=== PATIENT | male | born 1985 | race Caucasian/White ===

== ENCOUNTER 2023-02-22 16:39 | Emergency (ER) | payer MEDICAID ==
[~2023-02-22] VITALS: Ht 188 cm; Wt 99.8 kg
[2023-02-22] MEDS ORDERED: LIDOCAINE HCL 1% 20 ML VIAL ONE (16:56)
[2023-02-22] MEDS ORDERED: LIDOCAINE HCL 1% 20 ML VIAL TP ONE (17:00)
[2023-02-22] MEDS ORDERED: IBUP-1957 PO (17:48)
--- NOTE | 2023-02-22 18:07 | NUR ---
Patient discharged to home in stable condition. Written and verbal after care instructions given. Patient verbalizes understanding of instructions. Stressed follow up or return to ER for worsening s/s.
== END 2023-02-22 18:07 | disposition home or self-care (01) ==
LOC: ER 16:42
DX: S61.214A Laceration without foreign body of right ring finger without damage to nail, initial encounter (principal); S00.03XA Contusion of scalp, initial encounter; Z79.1 Long term (current) use of non-steroidal anti-inflammatories (NSAID); V49.9XXA Car occupant (driver) (passenger) injured in unspecified traffic accident, initial encounter; Y93.89 Activity, other specified; Y92.89 Other specified places as the place of occurrence of the external cause; Y99.8 Other external cause status
CPT/HCPCS: 99284; 70450; 71045; 72110; 73140; 72125; 12002; J3490; A4663

== ENCOUNTER 2023-02-26 12:15 | Emergency (ER) | payer MEDICAID ==
[~2023-02-26] VITALS: Ht 188 cm; Wt 99.8 kg
[~2023-02-26 12:15] MED LIST: IBUP-1957 PO
== END 2023-02-26 12:40 | disposition home or self-care (01) ==
LOC: ER 12:15
DX: S61.215D Laceration without foreign body of left ring finger without damage to nail, subsequent encounter (principal); Z79.1 Long term (current) use of non-steroidal anti-inflammatories (NSAID); V89.2XXD Person injured in unspecified motor-vehicle accident, traffic, subsequent encounter
CPT/HCPCS: A4663

== ENCOUNTER 2023-03-04 12:10 | Emergency (ER) | payer MEDICAID ==
[~2023-03-04] VITALS: Ht 188 cm; Wt 99.8 kg
--- NOTE | 2023-03-04 12:31 | NUR ---
38 years old male walk in to er for wound recheck and suture removal right 4th finger. no redness, no drainage no foul odor.
--- NOTE | 2023-03-04 12:41 | NUR ---
suture removed tolerated well skin intact, d/c home with instructions after care reviewed understood.
== END 2023-03-04 12:58 | disposition home or self-care (01) ==
LOC: ER 12:10
DX: S61.214D Laceration without foreign body of right ring finger without damage to nail, subsequent encounter (principal); Z79.1 Long term (current) use of non-steroidal anti-inflammatories (NSAID); V89.2XXD Person injured in unspecified motor-vehicle accident, traffic, subsequent encounter
CPT/HCPCS: A4663